=== PATIENT | female | born 1955 | race American Indian/Alaskan Native ===

== ENCOUNTER 2017-01-10 09:56 | Outpatient (CLI) | payer OTHER ==
--- NOTE | 2017-01-10 11:49 | XRay Report ---
Bilateral knees: Bilateral leg pain with swollen right knee. There is good alignment of the left knee. Periarticular spurs are identified involving both medial and lateral compartments more significantly on the medial side. The articular surfaces are smooth. There is mild narrowing of the medial compartment space. Healed fracture of the proximal fibula. The bones are well-mineralized. There is no obvious swelling or effusion noted. There is a minimal genu varus deformity of the right knee. Large periarticular spurs are identified involving the lateral compartment and to a lesser extent the medial compartment. Large femoral spurs are also identified both posteriorly as well as at the superior articular margin of the femur and patella. There is significant narrowing of the medial compartment. The articular surfaces appeared generally smooth involving both compartments. No joint effusion noted. The soft tissues are generally prominent and swelling is difficult to assess. There are tubular structures however in the posterior soft tissues that most likely represent varices. Impressions: 1. Mild degenerative changes of the left knee predominantly on the medial side. 2. Significant degenerative right knee changes as detailed above.
--- NOTE | 2017-01-10 11:52 | XRay Report ---
Lumbar spine: Back pain and right knee pain. There is mild anterior spondylosis predominantly at L3. There is a grade 2 L5 anterior subluxation relative to S1 and significant narrowing of the L5-S1 interspace. No clearly definable spondylolysis is noted. Vertebral height is preserved and the bones appear relatively well-mineralized. Impressions: L5-S1 spondylolisthesis.
== END 2017-01-10 09:57 | disposition home or self-care (01) ==
LOC: XRAY 09:56
PROVIDERS: ATTEND Internal Medicine
DX: M17.0 Bilateral primary osteoarthritis of knee (principal); M47.896 Other spondylosis, lumbar region; M43.16 Spondylolisthesis, lumbar region; S82.402D Unspecified fracture of shaft of left fibula, subsequent encounter for closed fracture with routine healing; M21.161 Varus deformity, not elsewhere classified, right knee; X58.XXXD Exposure to other specified factors, subsequent encounter
CPT/HCPCS: 72100

== ENCOUNTER 2017-10-20 13:16 | Outpatient (CLI) | payer OTHER | END 2017-10-20 13:17 | disposition home or self-care (01) | LOC: CARD 13:16 | DX: M75.121 Complete rotator cuff tear or rupture of right shoulder, not specified as traumatic (principal) | CPT/HCPCS: 93005; 93010 ==